=== PATIENT | female | born 1980 | race Caucasian/White ===

== ENCOUNTER 2017-02-10 21:30 | Emergency (ER) | payer BC ==
[~2017-02-10] VITALS: Ht 160 cm; Wt 85.4 kg
[~2017-02-10 21:30] MED LIST: ALPRAZOLAM0.25 M2 PO; ALPRAZOLAM1 MG PO; AUGMENTIN875 MG PO; BUPROPION XL150 MG PO; CARAFATE1 GM PO; DESYREL 150 MG150 MG PO; MOTRIN800 MG PO; NARCAN4 MG NS; NICOTINE PATCH1 EAC2 TD; NORCO 5/3251 TABLET PO; NORCO 7.5/321 TABLET PO; PEPCID20 MG PO; TRAZODONE HCL50 MG PO; XANAX0.25 MG PO; XANAX0.5 MG PO; ZOLOFT100 MG PO; methadone PO
[2017-02-10 22:12] LABS: HEMATOCRIT 34.1 % (36.0-46.0); MCH 29.7 PG (29.0-34.0); MCHC 33.1 G/DL (30.0-36.0); MCV 89.7 FL (83-99); MEAN PLAT.VOLUME 9.7 uM^3 (9.5-12.4); PLATELET COUNT 232 K/uL (156-360); RBC DIS.WIDTH-CV 11.9 % (11.8-14.6); RBC DIS.WIDTH-SD 38.8 % (39-53); WHITE BLOOD COUNT 8.1 K/uL (4.1-10.2)
[2017-02-10 22:26] LABS: CHLORIDE 104 mEq/L (99-109); POTASSIUM 4.3 mEq/L (3.7-5.4); SODIUM 139 mEq/L (136-147)
[2017-02-10 22:28] LABS: GLUCOSE 99 mg/dL (70-99)
[2017-02-10 22:29] LABS: ANION GAP 7 MEQ/L (2-14)
[2017-02-10 22:30] LABS: TOTAL BILIRUBIN 0.2 mg/dL (0.0-1.0)
[2017-02-10 22:31] LABS: ALKALINE PHOSPHATASE 61 IU/L (3-129); SERUM ETHYL ALCOHOL < 10 mg/dL
[2017-02-10 22:32] LABS: GFR ESTIMATE (CALCULATED) > 59 mL/min/
[2017-02-10 22:33] LABS: UREA NITROGEN (BUN) 9 mg/dL (9-23)
[2017-02-10 23:30] VITALS: BP 101/55
== END 2017-02-11 00:02 | disposition home or self-care (01) ==
LOC: EME 21:30
PROVIDERS: Emergency Medicine
DX: T40.1X1A Poisoning by heroin, accidental (unintentional), initial encounter (principal); F11.20 Opioid dependence, uncomplicated; T42.4X1A Poisoning by benzodiazepines, accidental (unintentional), initial encounter; F13.10 Sedative, hypnotic or anxiolytic abuse, uncomplicated; F33.1 Major depressive disorder, recurrent, moderate; F41.9 Anxiety disorder, unspecified; F17.200 Nicotine dependence, unspecified, uncomplicated
CPT/HCPCS: 80053; 81003; 85027; 90839; 99281; 99285; G0480; J2310

== ENCOUNTER 2017-04-30 14:57 | Emergency (ER) | payer BC ==
[~2017-04-30] VITALS: Ht 160 cm; Wt 85.7 kg
[2017-04-30 15:01] VITALS: BP 148/98
[2017-04-30] MEDS ORDERED: XANAX1 MG PO (15:07)
[2017-04-30] MEDS ORDERED: LAMICTAL150 M1 PO (15:07)
[2017-04-30] MEDS ORDERED: AMITRIPTYLINE100 MG PO (15:07)
[2017-04-30] MEDS ORDERED: EFFEXOR XR150 MG PO (15:08)
[2017-04-30 15:35] LABS: HEMATOCRIT 37.8 % (36.0-46.0); MCH 29.4 PG (29.0-34.0); MCHC 33.1 G/DL (30.0-36.0); MCV 88.9 FL (83-99); MEAN PLAT.VOLUME 9.4 uM^3 (9.5-12.4); PLATELET COUNT 297 K/uL (156-360); RBC DIS.WIDTH-CV 12.7 % (11.8-14.6); RBC DIS.WIDTH-SD 41.7 % (39-53); RED BLOOD COUNT 4.25 M/uL (3.80-5.20); WHITE BLOOD COUNT 8.9 K/uL (4.1-10.2)
[2017-04-30 15:45] LABS: D-DIMER ELISA 0.27 mg/L FEU (< 0.57)
[2017-04-30 15:57] LABS: CHLORIDE 106 mEq/L (99-109); POTASSIUM 4.3 mEq/L (3.7-5.4); SODIUM 140 mEq/L (136-147)
[2017-04-30 15:58] LABS: MAGNESIUM 2.1 mg/dL (1.3-2.7)
[2017-04-30 15:59] LABS: GLUCOSE 93 mg/dL (70-99)
[2017-04-30 16:00] LABS: ANION GAP 8 MEQ/L (2-14)
[2017-04-30 16:03] LABS: GFR ESTIMATE (CALCULATED) > 59 mL/min/
[2017-04-30 16:04] LABS: UREA NITROGEN (BUN) 8 mg/dL (9-23)
[2017-04-30 16:05] LABS: CREATINE KINASE 59 IU/L (1-294)
[2017-04-30] MEDS ORDERED: INDOCIN50 MG PO (16:07)
[2017-04-30] MEDS ORDERED: VALIUM5 MG PO (16:07)
== END 2017-04-30 16:27 | disposition home or self-care (01) ==
LOC: EME 14:57
PROVIDERS: Physician Assistant
DX: S86.911A Strain of unspecified muscle(s) and tendon(s) at lower leg level, right leg, initial encounter (principal); X58.XXXA Exposure to other specified factors, initial encounter; M62.831 Muscle spasm of calf; F17.200 Nicotine dependence, unspecified, uncomplicated
CPT/HCPCS: 80048; 82550; 83735; 85027; 85379; 99281; 99284